=== PATIENT | male | born 1995 | race Caucasian/White ===

== ENCOUNTER 2023-01-12 04:51 | Emergency (ER) | payer OTHER, SELFPAY ==
[2023-01-12 04:55] VITALS: BP 107/62; PULSE 66; RESP 13; TEMP 36.2; O2SAT 98; BMI 27.6
--- NOTE | 2023-01-12 05:13 | EKG12_ITS ---
Test Reason : DYSRHYTHMIA Blood Pressure : / mmHG Vent. Rate : 065 BPM Atrial Rate : 065 BPM P-R Int : 114 ms QRS Dur : 084 ms QT Int : 386 ms P-R-T Axes : 061 085 032 degrees QTc Int : 401 ms Normal sinus rhythm with sinus arrhythmia Nonspecific ST and T wave abnormality Abnormal ECG Confirmed by DAVE ALDANA, MAG ([id number]), order editor CARLY KAISER ([id number]) on 01/13/2023 8:38:54 AM Referred By: ADA Confirmed By:MAG ACOSTA MD
--- NOTE | 2023-01-12 05:19 | EDS_ITS ---
HPI History of Present Illness Chief Complaint: Chest Pain Detail of Chief Complaint: Midsternal chest pain. Informant: patient Onset/Context/Timing Onset: Today and Hours Activity at onset: gradual Timing: Continuous Quality: Positive for Aching and Pain Location: Substernal Current Severity: Moderate Maximum Severity: Moderate Worsened By: Nothing Relieved By: Nothing Associated Symptoms: Positive for Dyspnea; Negative for Nausea, Vomiting, Diaphoresis, Cough, Fever, Acid Reflux or Palpitations Narrative Narrative: 27-year-old male no seen past medical or surgical history. States that 3 AM he was awake watching TV and had onset of midsternal chest pain going into his back. Associated shortness of breath. No radiation to his neck or jaw. No diaphoresis. Has had pain like this before he said it usually resolves in about 15 minutes. This has been lasting over 2 hours. He says about 8 out of 10 pain. He denies any recent exertional chest pain or exertional dyspnea. He has no cardiac history. He is never had a DVT or PE. Pain is not pleuritic. He has had no hemoptysis. No leg pain or swelling. Prior Similar Symptoms: Yes Recent Illness/Hospitalization: No CVD Risk Factors: Negative for Hypertension, Diabetes, Hypercholesterolemia or Family History 1' </=55 PE Risk Factors: Negative for Recent Travel/Surgery, Recent Immobilization, Prior DVT or PE, Cancer or OCP + Smoking + >/=35 TAD Risk Factors: Negative for Marfan's Syndrome PFSH PFSH Medical History no medical history no medical history Home Medications pantoprazole 40 mg tablet,delayed release (Protonix) 40 mg PO DAILY 30 days #30 tabs 01/12/23 [Rx Last Taken Unknown] triamcinolone acetonide 55 mcg nasal spray aerosol (Nasacort Allergy) 2 spray intranasal DAILY 01/12/23 [History Last Taken Unknown] Allergy/AdvReac Type Severity Reaction Status Date / Time amoxicillin Allergy Anaphylaxis Verified 01/12/23 04:53 Penicillins [PCN] Allergy Anaphylaxis Verified 01/12/23 04:53 Family History no significant family his no significant family history Surgical History no surgical history no surgical history Social History Smoking Status: Current some day smoker tobacco type: cigarettes ROS ROS ED ROS Narrative Chest pain. Dyspnea. Review of Systems ROS Unobtainable: Denies due to encephalopathy Constitutional Constitutional ED: Denies chills or fever(s) Eyes Eyes: Reports none; Denies blurry vision ENT ENT ED: Denies ear pain Cardiovascular Cardiovascular: Reports as per HPI and chest pain; Denies palpitations or racing heartbeat Respiratory/Chest Respiratory/Chest: Reports dyspnea; Denies cough Gastrointestinal Gastrointestinal: Denies abdominal pain Genitourinary Genitourinary ED: Denies dysuria or hematuria Musculoskeletal Musculoskeletal: Denies arthralgias Integumentary Denies abscess Neurologic Neurologic: Denies headache(s) Psychiatric Psychiatric: Denies anxiety Endocrine Endocrinology: Denies cold intolerance Hematologic/Lymphatic Hematologic/Lymphatic: Denies easy bleeding Allergic/Immunologic Allergic/Immunologic ED: Denies mouth swelling or tongue swelling EXAM Physical Exam Narrative Exam Narrative: Well-appearing young male. Vital signs are stable afebrile. Pulse ox 98% on room air. No signs hypoxia. H EENT exam unremarkable. Neck nontender. Lungs clear to auscultation bilaterally. Heart regular rhythm no murmur. Chest wall nontender. Abdomen soft nontender. Moving all 4 extremities. Calves are nontender without edema or cords. Radial pulses are equal symmetrical. Back is nontender. Neurologic exam is normal. He is awake. He is alert. He is answer questions following commands. Normal motor strength. Const Vital Signs: 01/12/23 04:55 01/12/23 04:59 01/12/23 05:32 Temperature 97.1 F L Temperature Source Temporal Pulse Rate 66 Respiratory Rate 13 Respiratory Pattern Normal Blood Pressure 107/62 Blood Pressure Mean 77 Pulse Ox 98 Oxygen Delivery Method Room Air Room Air 01/12/23 07:17 Temperature Temperature Source Pulse Rate 73 Respiratory Rate Respiratory Pattern Blood Pressure 156/78 H Blood Pressure Mean 104 Pulse Ox Oxygen Delivery Method Positive well nourished and well developed; Negative for obese, cachectic, contractures or unkempt General Appearance ED: well developed and NAD; Negative for unkempt, cachectic, contractures or pallor Nutritional Appearance: Negative for cachectic or obese HEENT Reports moist mucous membranes normocephalic and atraumatic; Negative for trauma or tenderness Eyes PERRL and EOMs intact bilaterally General Eye ED: Negative for pale conjunctiva, scleral icterus or other Neck no lymphadenopathy, supple and no JVD General: Negative for tenderness Chest Wall inspection of chest normal and palpation of chest normal Chest: Negative for tenderness Resp normal respiratory effort and clear to auscultation bilaterally Effort and Inspection: Negative for respiratory distress Auscultation: Negative for rales, rhonchi or wheezes Cardio regular rate, regular rhythm, S1 normal heart sound, S2 normal heart sound and no murmurs Peripheral Pulses: pulses 2+ throughout GI normal to inspection, nondistended, normoactive bowel sounds, soft to palpation, non-tender, non-distended and no masses; Negative for hepatosplenomegaly Back/Spine no CVA tenderness and no thoracic nor lumbar tenderness General Back: Negative for CVA tenderness Cervical Spine: Negative for cervical spine tenderness Extremity normal to inspection General Extremety ED: Negative for edema, pulses abnormal or tenderness General Extremity: Negative for edema or pulses abnormal Neuro oriented x3, CN's II-XII intact bilaterally and no sensory deficits noted Sensorium / Orientation: awake, alert, oriented to person, oriented to place and oriented to time; Negative for confused, lethargic or stuporous Motor Exam: strength 5/5 throughout Psych mental status grossly normal Appearance: Negative for unkempt Attitude: No agitated Mood & Affect: Negative for depressed Skin no rashes or lesions noted and no wounds General Skin Exam: Negative for jaundice or pallor Rashes: No rashes noted Trauma: Negative for abrasion Heart Score History: Moderately Suspicious ECG: Normal Age: </= 45 years Risk Factors: No Risk Factors Troponin: </= Normal Limit Score: 1 MDM MDM MDM Narrative Medical decision making narrative: 27-year-old male with midsternal chest pain at rest. Differential would include cardiac etiology versus pericarditis versus esophagitis versus dissection. Undergo cardiac work-up. He does describe the pain going into his back so I will obtain a CTA of his chest. He has no risk factors for a PE and no history of 1. His exam is benign. There is no reproducible pain. Repeat exam at 6:27 AM doing well. Pain somewhat improving. He said the GI cocktail made no significant difference. He was just given IV Toradol. On the monitor is in normal sinus rhythm. He and I have gone over his test results so far including his CAT scan. Patient doing well on repeat exam at 6:57 AM. Pains improving. Repeat EKG is unremarkable. Awaiting the patient's repeat 2-hour troponin if that is normal patient is doing well will be discharged home with chest pain of uncertain etiology. Patient doing well at 8:05 AM. Awaiting his 2-hour troponin. As well as that is unremarkable be discharged home. Patient be discharged home with a prescription for Protonix. History & Record Review Discussion w/independent historian: Patient Lab Data Attestation: I reviewed the patient's lab results. Lab results narrative: CBC normal. White count 9. H&H 13.9 and 43. D-dimer is -0.33. Electrolytes unremarkable gap of 7. Normal BUN of 18 creatinine of 1. Leukos 139. Troponin 6. CTA of the chest showed no PE and no dissection. Interpreted by the radiologist. Reviewed by me. Second, 2-hour troponin was again normal and was also 6. Labs: Laboratory Results - last 24 hr 01/12/23 01/12/23 01/12/23 05:30 05:30 05:30 WBC 9.0 RBC 4.74 Hgb 13.9 Hct 43.0 MCV 90.7 MCH 29.3 MCHC 32.3 RDW Std Deviation 40.9 RDW Coeff of Pascual 12.4 Plt Count 219 MPV 10.0 Immature Gran % (Auto) 0.400 Neut % (Auto) 73.8 H Lymph % (Auto) 11.5 L [place] % (Auto) 10.5 H Eos % (Auto) 3.7 Baso % (Auto) 0.1 Absolute Neuts (auto) 6.6 Absolute Lymphs (auto) 1.03 Nucleated RBC % 0 ESR 5 D-Dimer Quant (PE/DVT) 0.33 Sodium 136 Potassium 3.8 Chloride 101 Carbon Dioxide 28.0 Anion Gap 7 BUN 18 Creatinine 1.03 Estim Creat Clear Calc 96.35 Est GFR (MDRD) Af Amer 110 Est GFR (MDRD) Non-Af 91 BUN/Creatinine Ratio 17.5 Glucose 139 H Calcium 9.1 Troponin I High Sens 6 01/12/23 07:46 WBC RBC Hgb Hct MCV MCH MCHC RDW Std Deviation RDW Coeff of Pascual Plt Count MPV Immature Gran % (Auto) Neut % (Auto) Lymph % (Auto) [place] % (Auto) Eos % (Auto) Baso % (Auto) Absolute Neuts (auto) Absolute Lymphs (auto) Nucleated RBC % ESR D-Dimer Quant (PE/DVT) Sodium Potassium Chloride Carbon Dioxide Anion Gap BUN Creatinine Estim Creat Clear Calc Est GFR (MDRD) Af Amer Est GFR (MDRD) Non-Af BUN/Creatinine Ratio Glucose Calcium Troponin I High Sens 6 Radiography Chest X-Ray - ED: 1 View and Read by ED Physician Diagnostic Testing: Clinical Impression(s) from Imaging Studies Chest CTA 01/12/23 05:25 IMPRESSION: 1. No evidence for pulmonary embolism, aortic aneurysm, or aortic dissection. 2. No evidence for acute cardiopulmonary pathology. Electronically Signed: Jose Ko MD at 6:03 EDT Reading Location ID and State: [facility] / [place] , Service support , Rhythm Strip Rhythm Strip: Sinus Rhythm Rate: 65 Ectopy: None EKG Initial EKG: Attestation: I personally reviewed and interpreted this EKG as follows: Interpretation: Sinus Rhythm and No Acute Injury Pattern Comments: Normal sinus rhythm rate of 65 no acute signs of ST elevation or acute [place]. Follow-up EKG: Attestation: I personally reviewed and interpreted this EKG as follows: Interpretation: Sinus Rhythm and No Acute Injury Pattern Comments: Second EKG shows normal sinus rhythm rate of 62. No acute signs of [place] or ischemia. Discharge Plan Triage Chief Complaint: Chest Pain ED Provider: Nick Rodriguez Dx/Rx/DC Orders Clinical Impression: Chest pain Instructions: ED Chest Pain, Uncertain Cause Prescriptions: New pantoprazole [Protonix] 40 mg tablet,delayed release (DR/EC) 40 mg PO DAILY 30 Days Qty: 30 0RF No Action triamcinolone acetonide [Nasacort Allergy] 55 mcg Aerosol,[place] 2 spray INTRANASAL DAILY Rx Instructions: administer into each nostril Primary Care Provider: Mike Herr Referrals: Mike Herr MD [Primary Care Provider] - 1-2 Days if not improving Activity Restrictions/Additional Instructions: Follow-up with your doctor if not improving. Return if you are feeling worse. Your labs, EKGs and CAT scan of your chest were all unremarkable. This may be secondary to gastritis or reflux. 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 40 mg once a day. If need be you can use it twice a day. Disposition Disposition: Home, Self Care
--- NOTE | 2023-01-12 05:25 | CT_ITS ---
EXAM: CT ANGIOGRAPHY CHEST WITHOUT AND WITH INTRAVENOUS CONTRAST CLINICAL INDICATION: chest pain radiating to back chest pain radiating to back TECHNIQUE: Helically acquired angiography images were obtained of the chest without and with intravenous contrast. This CT exam was performed using one or more of the following dose reduction techniques: automated exposure control, adjustment of the mA and/or kV according to patient size, and/or use of iterative reconstruction technique. This report was created using [employer] report generation technology. MIP reconstructed images were created and reviewed. CONTRAST: IV 100mL [id number] RADIATION DOSE: CTDIvol = 13.43 mGy, DLP = 325.42 mGy-cm COMPARISON: None. FINDINGS: PULMONARY ARTERIES: Unremarkable. Normal in caliber. No evidence of pulmonary embolism. AORTA: Unremarkable. Normal in caliber. No evidence of dissection. GREAT VESSELS OF AORTIC ARCH: Unremarkable. Normal in caliber. No evidence of dissection. LUNGS AND PLEURAL SPACES: Unremarkable. No mass. No consolidation or edema. No pleural effusion or thickening. No pneumothorax. HEART: Unremarkable. Heart size is normal. No pericardial effusion. No signs of right heart strain, ratio of right ventricle to left ventricle measures less than 1. MEDIASTINUM: Unremarkable. No mediastinal or hilar adenopathy. Esophagus is unremarkable. No hiatal hernia. THYROID: Unremarkable. No thyroid lesions. BONES/JOINTS: There are multilevel degenerative changes in the visualized spine. No suspicious lytic or blastic abnormality. LIVER: There is a small cyst in the visualized right lobe of the liver. CT/CTA Chest W/WO Contrast IMPRESSION: 1. No evidence for pulmonary embolism, aortic aneurysm, or aortic dissection. 2. No evidence for acute cardiopulmonary pathology. Electronically Signed: Jose Ko MD at 6:03 EDT ,
[2023-01-12] MEDS: Pantoprazole Sodium 40 MG Tablet PO (05:35)
[2023-01-12] MEDS: Mag Hydrox/Al Hydrox/Simeth 30 ML UDC PO (05:35)
[2023-01-12 05:38] LABS: Absolute Lymphocyte Count 1.03 X10^3/uL (0.83-4.51); Absolute Neutrophil Count 6.6 X10^3/uL (2.0-7.7); Basophil# 0.01 X10^3/uL; Basophil% 0.1 % (0-1); Eosinophil# 0.33 X10^3/uL; Eosinophils% 3.7 % (0-5); Hemoglobin 13.9 g/dL (13.0-16.5); Lymphocyte # 1.03 X10^3/ul (0.83-4.51); Lymphocyte % 11.5 % (19-41); Mean Corp Hgb Conc 32.3 g/dL (32-36); Mean Corpuscular Hgb 29.3 pg (27.0-32.0); Mean Corpuscular Volume 90.7 fL (80-94); Monocyte# 0.94 X10^3/uL; Monocyte% 10.5 % (0-10); NRBC Flagged by Analyzer 0 % (0-5); Neutrophil # 6.62 X10^3/uL (2.7-7.7); Neutrophil % 73.8 % (47-70); Platelet Count 219 K/mm3 (150-450); RBC Distribution Width CV 12.4 % (11.6-14.6); RBC Distribution Width SD 40.9 fl (35.1-43.9); Red Blood Count 4.74 M/mm3 (4.6-6.2)
[2023-01-12 06:04] LABS: Anion Gap 7 (5-15); BUN 18 mg/dL (7-18); BUN/Creat Ratio 17.5 RATIO (10-20); Calcium,Total 9.1 mg/dL (8.5-10.1); Chloride 101 mmol/L (98-107); Creatinine, Serum 1.03 mg/dL (0.70-1.30); EST Glomerular Filtration Rate 91 mL/min (>60); Est Glom Filt Rate - Afr Amer 110 mL/min (>60); Estimated Creatinine Clearance 96.35 ml/min; Glucose 139 mg/dL (74-106); Potassium 3.8 mmol/L (3.5-5.1); Sodium Level 136 mmol/L (136-145); Troponin-I HS (w/2H Reflex) 6 pg/mL (3.0-78.0)
[2023-01-12 06:24] LABS: D-Dimer Quantitative (DVT/PE) 0.33 FEU/ug/m (0.27-0.49)
[2023-01-12] MEDS: Ketorolac 30 MG/ML Syringe IV (06:25)
--- NOTE | 2023-01-12 06:30 | EKG12_ITS ---
Test Reason : Blood Pressure : / mmHG Vent. Rate : 062 BPM Atrial Rate : 062 BPM P-R Int : 124 ms QRS Dur : 086 ms QT Int : 384 ms P-R-T Axes : 055 085 021 degrees QTc Int : 389 ms Normal sinus rhythm with sinus arrhythmia Nonspecific ST and T wave abnormality Abnormal ECG Confirmed by DAVE ALDANA, MAG ([id number]), video editor CARLY KAISER ([id number]) on 01/13/2023 8:39:06 AM Referred By: LOURDES Confirmed By:MAG ACOSTA MD
[2023-01-12 06:46] LABS: Erythrocyte Sedimentation Rate 5 mm/hr (0-20)
[2023-01-12 07:17] VITALS: BP 156/78; PULSE 73
[2023-01-12 07:32] LABS: Reflex Troponin-HS? (from REC) Y
[2023-01-12 08:09] LABS: Troponin-I HS 6 pg/mL (3.0-78.0)
[2023-01-12 08:21] VITALS: BP 144/73; PULSE 68; O2SAT 100
== END 2023-01-12 08:22 | disposition home or self-care (01) ==
PROVIDERS: Emergency Provider Emergency Medicine; PCP Family Medicine; Visit Provider Emergency Medicine
DX: R07.9 Chest pain, unspecified (principal); F17.210 Nicotine dependence, cigarettes, uncomplicated
CPT/HCPCS: 71275; 80048; 84484; 85025; 85379; 85652; 93005; 96374; 99285; Q9967; A4216